=== PATIENT | female | born 1940 | race Caucasian/White ===

== ENCOUNTER 2016-11-07 09:42 | Outpatient (CLI) | payer OTHER | END 2016-11-07 23:00 | LOC: RT SRH 09:42 | DX: Z01.810 Encounter for preprocedural cardiovascular examination (principal); Z01.812 Encounter for preprocedural laboratory examination; N81.6 Rectocele; R94.31 Abnormal electrocardiogram [ECG] [EKG] | CPT/HCPCS: 90047; 90074; 95059 ==

== ENCOUNTER 2017-01-08 09:52 | Outpatient (CLI) | payer OTHER | END 2017-01-08 23:00 | LOC: LAB SRH 09:52 | DX: D50.8 Other iron deficiency anemias (principal) | CPT/HCPCS: 90074; 91162; 91163 ==